=== PATIENT | female | born 1930 | race Caucasian/White ===

== ENCOUNTER 2017-03-31 14:37 | Inpatient (IN) | payer MEDICARE, OTHER ==
[2017-03-31] MEDS ORDERED: Loperamide HCl 2 MG CAP PO PRN (17:34)
[2017-03-31] MEDS ORDERED: PROVENTIL INHALER 6.7 G (200 INHALATIONS) INH PRN (17:34)
[2017-03-31] MEDS ORDERED: Loratadine 10 MG TAB PO PRN (17:34)
[2017-03-31] MEDS ORDERED: Levalbuterol HCl 1.25 MG/0.5 ML NEB NEB PRN (17:34)
[2017-03-31] MEDS ORDERED: Milk Of Magnesia 30 ML UDCUP PO PRN (17:37)
[2017-03-31] MEDS: Acetaminophen 325 MG TAB PO SCH (18:48)
[2017-03-31] MEDS: Amoxicillin/Potassium Clav 500 MG TAB PO SCH (21:17)
[2017-03-31] MEDS: Ferrous Sulfate 325 MG TAB PO SCH (21:18)
[2017-03-31] MEDS: Famotidine 20 MG TAB PO SCH (21:18)
[2017-03-31] MEDS: Dicyclomine 20 MG TAB PO PRN (21:18)
[2017-03-31] MEDS: Diphenoxylate HCl/Atropine Tablet PO PRN (21:18)
[2017-03-31] MEDS: Apixaban 5 MG TAB PO SCH (21:19)
[2017-03-31] MEDS: Lidocaine Patch Removal 1 EACH TOP SCH (21:20)
[2017-03-31] MEDS: Mometasone/Formoterol 60 PUFF AER INH SCH (21:39)
--- NOTE | 2017-03-31 22:21 | HP ---
DATE OF ADMISSION: 03/31/2017 HISTORY OF PRESENT ILLNESS: Ms. Burnett is a very pleasant 87-year-old white female that presented t [facility] with shortness of breath, chronic obstructive pulmonary disease, acute exacerba tion and chronic diastolic congestive heart failure. She was evaluated and found to possibly have pn eumonia also. She was treated with IV antibiotics, aggressive pulmonary supportive measures includin g IV Solu-Medrol, bronchodilator therapy, and IV antibiotics. The patient eventually improved, becky casillas, was transferred to [facility] for physical therapy and occupational therapy. PAST MEDICAL HISTORY: Significant for; 1. T12 vertebral compression fracture, which she had a vertebroplasty done. 2. Atrial fibrillation. 3. Hypertension 4. Cardiac arrhythmia. 5. Non-Hodgkin's lymphoma. 6. Diastolic congestive heart failure. 7. Chronic obstructive pulmonary disease from smoking. 8. GERD. 9. Peptic ulcer disease. 10. Dysphagia. 11. Depression. 12. Macular degeneration. 13. Generalized weakness. PAST SURGICAL HISTORY: 1. The patient has had tonsillectomy and adenoidectomy. 2. The patient had vertebroplasty at T12. SOCIAL HISTORY: Reveals patient stopped smoking in 1995, but she had a [id number] history of smoki ng. The patient drinks no alcohol at this time. She has no drug. 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 PRESENT MEDICATIONS: Reviewed, she is on the followin. Tylenol 650 p.r.n. 2. Albuterol inhaler 2 puffs q.6 h. p.r.n. 3. DuoNebs q.6 h. p.r.n. 4. Augmentin 500 mg twice a day for 2-3 more days. 5. Apixaban 2.5 mg b.i.d. 6. Aspirin 81 mg daily. 7. Carvedilol 6.25 b.i.d. 8. Bentyl 10 mg q.i.d. p.r.n. 9. Lomotil 2 tabs q.i.d. p.r.n. diarrhea. 10. Pepcid 20 mg b.i.d. 11. Feosol 325 mg b.i.d. 12. Fluoxetine 60 mg daily. 13. Lasix 20 mg daily. 14. Xopenex 1.25 q.6 h. p.r.n. 15. Lidocaine patch p.r.n. 16. Claritin 10 mg daily p.r.n. 17. Milk of Magnesia p.r.n. 18. Melatonin 3 mg at bedtime p.r.n. 19. Lidocaine patch to be removed after 12 hours. 20. Dulera 200 mg b.i.d. 21. Potassium chloride 20 mEq b.i.d. with meals. 22. Prednisone 40 mg every morning for 3 days, then decrease to 30 mg every day for 3 days, then 20 mg daily in the morning for 3 days, then 10 mg every morning for 3 days, then off. 23. Valtrex 500 mg daily. ALLERGIES: The patient is noted to be allergic to FLAGYL, SULFA, AND TRAMADOL. FAMILY HISTORY: Reveals patient's father at age 82. He had pneumonia, COPD, macular degenerati on. The patient's mother at age 93. She had decreased vision and in sleep, thought to be possibly a stroke. The patient's paternal grandfather lived to be over 100. Patient has had one bro ther, who recently at age 90 of lung cancer. Has no sisters and she has two children. Family h istory is positive for macular degeneration, COPD. REVIEW OF SYSTEMS: Reveal the patient's appetite is increasing. She complains of no skin problems e xcept for her shingles. She states her vision or hearing are poor. She does get short of breath and does cough occasionally and occasionally wheezes. She does have shortness of breath on exertion. S he has some chest pain when they pumped on her chest. She has no nausea, vomiting, indigestion. She states her appetite is getting better. She occasionally has constipation. She has no nocturia. Sh e has arthralgias, it kind of roves around. She has no significant anxiety-depressive disorder. PHYSICAL EXAMINATION: GENERAL: This is a well-developed, well-nourished, very pleasant white female in no apparent distres s at this time. HEENT: Reveals normocephalic, nontraumatic cranium. Pupils equal, round, and reactive. Extraocular movements intact. Nose and throat are slightly dry. NECK: Supple, without masses, nodes, or bruits. No jugular venous distention is noted. CHEST: Reveals shallow breath sounds. There are also distant. No rales, no rhonchi, no wheezes are heard at this time. No significant cough is noted. HEART: Reveals a regular rate and rhythm, a 2/6 systolic ejection murmur is noted. [place] best at th e mitral area. ABDOMEN: Scaphoid, soft, nontender, without organomegaly. Normal bowel sounds are noted. No reboun d or guarding is noted. : Deferred. EXTREMITIES: Reveal no clubbing, cyanosis, or edema. ASSESSMENT: 1. Generalized weakness. 2. Status post acute hypoxic respiratory failure. 3. Status post acute exacerbation of chronic obstructive pulmonary disease, improved. 4. Aspiration pneumonia, gram positive cocci improved. 5. Acute metabolic encephalopathy, improved. 6. Paroxysmal atrial fibrillation, anticoagulated with Eliquis 2.5 b.i.d. 7. Esophageal stricture, status post dilatation. 8. Hypertension. 9. T12 compression fracture with recent vertebroplasty. 10. Macular degeneration. 11. Dysphagia. 12. Depression. 13. Non-Hodgkin's lymphoma. 14. Diastolic congestive heart failure. 15. Gastroesophageal reflux disease. 16. Peptic ulcer disease. 17. Depression. 18. Generalized weakness. PLAN: 1. Continue present medications. 2. Stress ulcer prophylaxis. 3. Decubitus precautions. 4. Physical therapy and occupational therapy. 5. Speech therapy. 6. Continue present medications.
[2017-04-01] MEDS: Acetaminophen 325 MG TAB PO SCH ×4 (01:59→17:51)
[2017-04-01 05:22] LABS: Band 2 % (5-11); Eosinophils 5 % (0-10); Hemoglobin 15.4 g/dL (12.0-16.0); Lymphocytes 13 % (21-51); MDiff Complete? YES; Mean Corpuscular HGB CONC 30.2 g/dL (32.0-36.0); Mean Corpuscular Hemoglobin 29.2 pg (27.0-31.0); Mean Corpuscular Volume 96.7 fl (81.0-99.0); Mean Platelet Volume 8.3 fL (7.4-10.4); Monocytes 8 % (0-10); Neutrophil 72 % (42-75); PLT Morphology Comment Appears Adequate; Platelet Count 349 thou/uL (130-400); RBC Distribution Width 16.8 % (11.5-14.5); RBC Morphology Normal; Red Blood Cell (RBC) Count 5.27 mill/uL (4.20-5.40); White Blood Cell (WBC) Count 7.2 thou/uL (4.8-10.8)
[2017-04-01 05:36] LABS: ALT (SGPT) 14 U/L (8-55); AST (SGOT) 14 U/L (5-34); Albumin 3.5 g/dL (3.4-4.8); Alkaline Phosphatase 91 U/L (40-150); Anion Gap 15 mmol/L (10-20); BUN (Urea Nitrogen) 23 mg/dL (9.8-20.1); Bilirubin, Total 0.6 mg/dL (0.2-1.2); Calc. Creatinine Clearance 36 mL/min (70-130); Calcium 9.4 mg/dL (7.8-10.44); Carbon Dioxide 33 mmol/L (23-31); Chloride 99 mmol/L (98-107); Estimated GFR-MDRD 69; Globulin 2.4 g/dL (2.4-3.5); Glucose 99 mg/dL (83-110); Potassium 4.6 mmol/L (3.5-5.1); Protein, Total 5.9 g/dL (6.0-8.3); Sodium 142 mmol/L (136-145)
[2017-04-01] MEDS: Mometasone/Formoterol 60 PUFF AER INH SCH ×2 (05:59→18:34)
[2017-04-01] MEDS: Famotidine 20 MG TAB PO SCH ×2 (08:41→21:12)
[2017-04-01] MEDS: valACYclovir 500 MG TAB PO SCH (08:41)
[2017-04-01] MEDS: Potassium Chloride 20 MEQ TAB PO SCH ×2 (08:41→17:47)
[2017-04-01] MEDS: FLUoxetine HCl 20 MG CAP PO SCH (08:41)
[2017-04-01] MEDS: Ferrous Sulfate 325 MG TAB PO SCH ×2 (08:42→21:12)
[2017-04-01] MEDS: predniSONE 20 MG TAB PO SCH (08:42)
[2017-04-01] MEDS: Aspirin 81 mg Enteric Coated Tablet PO SCH (08:43)
[2017-04-01] MEDS: Furosemide 20 MG TAB PO SCH (08:43)
[2017-04-01] MEDS: Carvedilol 6.25 MG TAB PO SCH ×2 (08:43→17:46)
[2017-04-01] MEDS: Apixaban 5 MG TAB PO SCH ×2 (08:43→21:13)
[2017-04-01] MEDS: Amoxicillin/Potassium Clav 500 MG TAB PO SCH ×2 (08:43→21:13)
[2017-04-01] MEDS: Lidocaine 5% Patch TD SCH (08:44)
[2017-04-01] MEDS: Diphenoxylate HCl/Atropine Tablet PO PRN (13:55)
--- NOTE | 2017-04-01 18:55 | PRG ---
DATE OF SERVICE: 04/01/2017 DATE OF ADMISSION: 03/31/2017 HISTORY OF PRESENT ILLNESS: Ms. Burnett is a very pleasant 87-year-old white female that presented t o the emergency room at [facility] with shortness of breath. She was found to have COPD acu te exacerbation and chronic diastolic congestive heart failure. She was evaluated and also thought t o have pneumonia. She eventually was treated with IV antibiotics, IV Solu-Medrol, bronchodilator the rapy. She was stabilized and transferred to [facility] for physical therapy, occupat ional therapy because she was so weak. SUBJECTIVE: The patient states she had a good night. She slept well and had a wonderful breakfast. She is waiting for therapy this morning. Unfortunately, she refused therapy last night because when she got in, she was just absolutely exhausted. PHYSICAL EXAMINATION: VITAL SIGNS: This morning revealed blood pressure 116/66, pulse 96-98, respirations 20, O2 sat 96-98 % on 2-3 liters. T-max is 97.4. GENERAL: This is a well-developed, well-nourished, white female in no apparent distress at this time . HEENT: Reveals normocephalic, nontraumatic cranium. Pupils are equally round and reactive. Extraoc ular movements intact. Nose and throat are slightly dry. NECK: Supple, without masses, nodes or bruits. No jugular venous distention is noted. LUNGS: Chest is clear to auscultation, but breath sounds are noted be distant and shallow. No rales , no rhonchi, no wheezes and no cough is noted. HEART: Reveals a regular rate and rhythm. A 2/6 systolic ejection murmur is noted, heard best at th e mitral valve area. ABDOMEN: Scaphoid, soft, nontender, without organomegaly, normal bowel sounds are noted in all 4 avel drants. No rebound or guarding is noted. GENITOURINARY: Deferred. EXTREMITIES: Reveal no clubbing, cyanosis or edema. ASSESSMENT: 1. Generalized weakness. 2. Status post acute hypoxic respiratory failure. 3. Status post acute exacerbation of chronic obstructive pulmonary disease. 4. Status post acute exacerbation of congestive heart failure. 5. Aspiration pneumonia with gram positive cocci, improved. 6. Acute metabolic encephalopathy, improved. 7. Paroxysmal atrial fibrillation, presently on anticoagulation with Eliquis 2.5 b.i.d. 8. Esophageal stricture, status post dilatation. 9. Hypertension. 10. T12 compression fracture with recent vertebroplasty. 11. Macular degeneration. 12. Dysphagia. 13. Depression. 14. Non-Hodgkin's lymphoma. 15. Diastolic congestive heart failure. 16. Gastroesophageal reflux disease. 17. Peptic ulcer disease. 18. Generalized weakness. PLAN: 1. Continue present medications. 2. Continue stress ulcer prophylaxis. 3. Decubitus precautions. 4. Physical therapy and occupational therapy. 5. Speech therapy.
[2017-04-01] MEDS: Nystatin 500,000 UNITS/5 ML UDCUP PO SCH (21:12)
[2017-04-01] MEDS: Lidocaine Patch Removal 1 EACH TOP SCH (21:13)
[2017-04-01] MEDS: Melatonin 3 MG TAB PO PRN (21:13)
[2017-04-02] MEDS: Acetaminophen 325 MG TAB PO SCH ×4 (02:46→17:16)
[2017-04-02] MEDS: Mometasone/Formoterol 60 PUFF AER INH SCH ×2 (05:31→21:30)
[2017-04-02] MEDS: Nystatin 500,000 UNITS/5 ML UDCUP PO SCH ×4 (08:48→21:30)
[2017-04-02] MEDS: Apixaban 5 MG TAB PO SCH ×2 (08:52→21:31)
[2017-04-02] MEDS: valACYclovir 500 MG TAB PO SCH (08:52)
[2017-04-02] MEDS: predniSONE 20 MG TAB PO SCH (08:53)
[2017-04-02] MEDS: Famotidine 20 MG TAB PO SCH ×2 (08:53→21:31)
[2017-04-02] MEDS: FLUoxetine HCl 20 MG CAP PO SCH (08:53)
[2017-04-02] MEDS: Furosemide 20 MG TAB PO SCH (08:53)
[2017-04-02] MEDS: Carvedilol 6.25 MG TAB PO SCH ×2 (08:53→17:18)
[2017-04-02] MEDS: Aspirin 81 mg Enteric Coated Tablet PO SCH (08:53)
[2017-04-02] MEDS: Ferrous Sulfate 325 MG TAB PO SCH ×2 (08:54→21:31)
[2017-04-02] MEDS: Amoxicillin/Potassium Clav 500 MG TAB PO SCH ×2 (08:56→21:31)
[2017-04-02] MEDS: Potassium Chloride 20 MEQ TAB PO SCH ×2 (08:56→17:18)
[2017-04-02] MEDS: Lidocaine 5% Patch TD SCH (08:57)
--- NOTE | 2017-04-02 17:09 | PRG ---
DATE OF SERVICE: 04/02/2017 DATE OF ADMISSION: 03/31/2017 Ms. Burnett is a very pleasant 87-year-old white female who initially presented to the emergency room at [facility] with shortness of breath. She was found to have COPD acute exacerbation and chronic diastolic congestive heart failure. She was evaluated and thought to have pneumonia. She ev entually was treated with IV antibiotics, IV Solu-Medrol, and bronchodilator therapy. She eventually stabilized and transferred to [facility] for physical therapy and occupational thera py. A couple weeks before that the patient had been at [facility] for physical therapy and occupational therapy secondary to falling with a T12 compression fracture. She has had some significant problems with congestive heart failure. She actually did fairly well at therapy, but had to be shipped to [place] because of her pneumonia, COPD, acute exacerbation of CHF. SUBJECTIVE: The patient states she has not had a very good morning this morning. She had Speech The rapy come and Physical Therapy come and her lunch all come about the same time and seemed to be somew hat disjointed. She has also had significant problems with diarrhea alternating with constipation. She states she has had 4 diarrhea stools yesterday and 3 last night, but then before that she was con stipated. She did take a couple of Lomotil yesterday and that seemed to settle things a little bit. She seems a little bit out of sort this afternoon and she is most likely just somewhat tired. Nonet heless, she did say that she would try to get some physical therapy this afternoon and looking back n ow, it looked like the physical therapist did come by little bit after 3:00 and she walked 120 feet. She is still very weak and balance is poor and she can still use more therapy. PHYSICAL EXAMINATION: VITAL SIGNS: Reveal blood pressure this morning 165/91, at 1500 hours, 132/77. Pulse is 72, respira tions 18, O2 sat 100% on 2-1/2 to 3 liters. T-max is 95.7. GENERAL: This is a well-developed, well-nourished, very pleasant white female who is somewhat little upset this afternoon from all disjointedness of this morning. HEENT: Reveals normocephalic, nontraumatic cranium. Pupils are equally round and reactive. Extraoc ular movements are intact. Nose and throat are slightly dry. NECK: Supple, without mass, nodes or bruits. CHEST: Clear to auscultation. No rales. No rhonchi. No wheezes are heard. HEART: Reveals a regular rate and rhythm with a 2/6 systolic ejection murmur is noted, heard best at the mitral valve area. ABDOMEN: Soft, scaphoid, nontender, without organomegaly. Normal bowel sounds are noted in all 4 qu adrants. No rebound or guarding is noted. GENITOURINARY: Deferred. EXTREMITIES: Reveal no clubbing, cyanosis or edema. IMPRESSION: 1. Generalized weakness. 2. Status post acute hypoxic respiratory failure. 3. Status post acute exacerbation of chronic obstructive pulmonary disease. 4. Status post acute exacerbation of congestive heart failure. 5. Aspiration pneumonia with gram positive cocci, improved. 6. Acute metabolic encephalopathy, improved. 7. Paroxysmal atrial fibrillation, presently on anticoagulant with Eliquis 2.5 b.i.d. 8. Esophageal stricture, status post dilatation. 9. Hypertension. 10. T12 compression fracture with recent vertebroplasty. 11. Macular degeneration. 12. Dysphagia, much improved. 13. Depression. 14. Non-Hodgkin's lymphoma. 15. Diastolic congestive heart failure. 16. Gastroesophageal reflux disease. 17. Peptic ulcer disease. 18. Generalized weakness. PLAN: 1. Continue present medications. 2. Continue to follow the patient closely for signs and symptoms of congestive heart failure. 3. Stress ulcer prophylaxis. 4. Decubitus precautions. 5. Deep venous thrombosis prophylaxis. 6. Monitor the patient's heart rate. 7. Monitor the patient's respiratory status closely. 8. Monitor the patient's blood pressure closely. 9. Continue physical therapy and occupational therapy. 10. Continue speech therapy.
[2017-04-02] MEDS: Dicyclomine 20 MG TAB PO PRN (17:30)
[2017-04-02] MEDS: Melatonin 3 MG TAB PO PRN (21:31)
[2017-04-02] MEDS: Lidocaine Patch Removal 1 EACH TOP SCH (21:32)
[2017-04-03] MEDS: Acetaminophen 325 MG TAB PO SCH ×4 (00:29→18:24)
[2017-04-03 05:45] LABS: Hemoglobin 15.5 g/dL (12.0-16.0); Platelet Count 369 thou/uL (130-400)
[2017-04-03] MEDS: Mometasone/Formoterol 60 PUFF AER INH SCH ×2 (06:28→18:28)
[2017-04-03] MEDS: Amoxicillin/Potassium Clav 500 MG TAB PO SCH ×2 (09:28→21:23)
[2017-04-03] MEDS: valACYclovir 500 MG TAB PO SCH (09:29)
[2017-04-03] MEDS: Ferrous Sulfate 325 MG TAB PO SCH ×2 (09:29→21:23)
[2017-04-03] MEDS: FLUoxetine HCl 20 MG CAP PO SCH (09:29)
[2017-04-03] MEDS: predniSONE 20 MG TAB PO SCH (09:29)
[2017-04-03] MEDS: Carvedilol 6.25 MG TAB PO SCH ×2 (09:30→18:24)
[2017-04-03] MEDS: Aspirin 81 mg Enteric Coated Tablet PO SCH (09:30)
[2017-04-03] MEDS: Apixaban 5 MG TAB PO SCH ×2 (09:30→21:23)
[2017-04-03] MEDS: Famotidine 20 MG TAB PO SCH ×2 (09:30→21:23)
[2017-04-03] MEDS: Furosemide 20 MG TAB PO SCH (09:30)
[2017-04-03] MEDS: Nystatin 500,000 UNITS/5 ML UDCUP PO SCH ×4 (09:33→21:23)
[2017-04-03] MEDS: Potassium Chloride 20 MEQ TAB PO SCH ×2 (09:33→18:24)
[2017-04-03] MEDS: Lidocaine 5% Patch TD SCH (09:36)
--- NOTE | 2017-04-03 20:42 | PRG ---
DATE OF SERVICE: 04/03/2017 SUBJECTIVE: The patient feels well, cooperating with therapy, walking in the [place], having no shortne ss of breath, back pain or chest pain, but does have occasional anxiety attacks which she states that she can relieve with just self meditation. OBJECTIVE: Shows her blood pressure, however, is occasionally elevated up to 187/94 although oxygen saturation is 99% on 2-1/2 liters, afebrile, and pulse remained stable at 80. LABORATORY DATA: Hemoglobin stable at 15.5, platelet count 369, creatinine 0.79. ASSESSMENT: 1. Improving chronic obstructive pulmonary disease and steroid taper. 2. Slowly improving decompensated congestive heart failure on furosemide 20 daily, and carvedilol 6. 25 twice daily. 3. Chronic atrial fibrillation with rate control with carvedilol 6.25 twice daily and anticoagulatio n with apixaban 2.5 twice daily. 4. Compression fracture of the lumbosacral spine, minimal pain status post vertebroplasty. PLAN: 1. Continue nebulizers as needed with albuterol. Continue Augmentin 500 mg twice daily for 2-3 more days for previous bronchitis. 2. Continue rate control and anticoagulation with carvedilol, on apixaban. 3. Continue diuresis with Lasix 20 daily, and potassium. 4. Continue PT at a gentle rate at patient's pace.
[2017-04-03] MEDS: Diphenoxylate HCl/Atropine Tablet PO PRN (21:23)
[2017-04-03] MEDS: Melatonin 3 MG TAB PO PRN (21:23)
[2017-04-03] MEDS: Lidocaine Patch Removal 1 EACH TOP SCH (21:24)
[2017-04-04] MEDS: Acetaminophen 325 MG TAB PO SCH ×4 (00:03→17:35)
[2017-04-04] MEDS: Mometasone/Formoterol 60 PUFF AER INH SCH ×2 (06:00→18:23)
[2017-04-04] MEDS ORDERED: Carvedilol 6.25 MG TAB PO SCH (07:11)
--- NOTE | 2017-04-04 09:25 | PRG ---
DATE OF SERVICE: 04/04/2017 SUBJECTIVE: The patient feels well, rested well through the night with no complaints of blood pressu re elevation or anxiety. Nurses state she has had a couple episodes of what they thought was anxiety , but patient feels it was just her blood pressure being elevated and she did have elevated blood pre ssure at times. She is denying any shortness of breath with walking and is having increasing strengt h. OBJECTIVE: VITAL SIGNS: Temperature is 98.7, pulse 72, respirations 19, O2 sat is 99% on 2 liters, blood pressu re 164/89 this morning and was 187/94 last night. LUNGS: Clear. CARDIAC EXAMINATION: Shows an irregularly irregular rhythm. ABDOMEN: Soft and nontender. SKIN AND EXTREMITIES: Show no edema, clubbing, cyanosis. ASSESSMENT: 1. Improving chronic obstructive pulmonary disease with recent exacerbation, on steroid taper. 2. Persistent uncontrolled hypertension, on carvedilol 6.25 twice daily and we will increase to 12.5 twice daily. 3. Chronic atrial fibrillation with rate control and anticoagulation with carvedilol and apixaban. 4. Minimal pain, status post compression fracture of lumbosacral spine, status post vertebroplasty. 5. Slowly improving decompensated congestive heart failure, on furosemide 20 daily in addition to ca rvedilol, and we will continue. PLAN: 1. Finish course of Augmentin for COPD exacerbation. Continue steroid taper. 2. Increase carvedilol 12.5 twice daily and continue Apixaban 2.5 twice daily. 3. Continue Lasix 20 daily with potassium supplementation. 4. Continue physical therapy and occupational therapy.
[2017-04-04] MEDS: Ferrous Sulfate 325 MG TAB PO SCH ×2 (09:30→22:15)
[2017-04-04] MEDS: Apixaban 5 MG TAB PO SCH ×2 (09:30→22:16)
[2017-04-04] MEDS: Aspirin 81 mg Enteric Coated Tablet PO SCH (09:31)
[2017-04-04] MEDS: Amoxicillin/Potassium Clav 500 MG TAB PO SCH ×2 (09:31→22:16)
[2017-04-04] MEDS: valACYclovir 500 MG TAB PO SCH (09:31)
[2017-04-04] MEDS: Potassium Chloride 20 MEQ TAB PO SCH ×2 (09:31→17:35)
[2017-04-04] MEDS: FLUoxetine HCl 20 MG CAP PO SCH (09:31)
[2017-04-04] MEDS: predniSONE 10 MG TAB PO SCH (09:32)
[2017-04-04] MEDS: Furosemide 20 MG TAB PO SCH (09:32)
[2017-04-04] MEDS: Carvedilol 6.25 MG TAB PO SCH ×2 (09:32→17:34)
[2017-04-04] MEDS: Famotidine 20 MG TAB PO SCH ×2 (09:32→22:16)
[2017-04-04] MEDS: Nystatin 500,000 UNITS/5 ML UDCUP PO SCH ×4 (09:33→22:17)
[2017-04-04] MEDS: Lidocaine 5% Patch TD SCH (09:33)
[2017-04-04] MEDS: Diphenoxylate HCl/Atropine Tablet PO PRN ×2 (17:35→22:15)
[2017-04-04] MEDS: Melatonin 3 MG TAB PO PRN (22:15)
[2017-04-04] MEDS: Lidocaine Patch Removal 1 EACH TOP SCH (22:16)
[2017-04-04 22:41] LABS: Bilirubin Negative (Negative); Blood, Urine Negative (Negative); Clarity Clear (Clear); Glucose, Urine (Dipstick) Negative (Negative); Leukocyte Negative (Negative); Nitrite Negative (Negative); Protein, Urine (Dipstick) Negative (Neg-Trace); Urobilinogen 0.2 mg/dL (0.2-1.0); pH, Urine 5.5 (5.0-9.0)
[2017-04-04 22:46] LABS: Bacteria/HPF None Seen HPF (None Seen); RBC/HPF None Seen HPF (0-3); Squamous Epithelial 0-3 HPF (0-3); WBC/HPF None Seen HPF (0-3)
[2017-04-05] MEDS: Acetaminophen 325 MG TAB PO SCH ×4 (00:30→17:57)
[2017-04-05 05:33] LABS: Hemoglobin 15.7 g/dL (12.0-16.0); Platelet Count 411 thou/uL (130-400)
[2017-04-05] MEDS: Mometasone/Formoterol 60 PUFF AER INH SCH ×2 (05:56→17:57)
[2017-04-05] MEDS: predniSONE 10 MG TAB PO SCH (08:04)
[2017-04-05] MEDS: Potassium Chloride 20 MEQ TAB PO SCH ×2 (08:07→17:56)
[2017-04-05] MEDS: Carvedilol 6.25 MG TAB PO SCH ×2 (09:04→17:55)
[2017-04-05] MEDS: Amoxicillin/Potassium Clav 500 MG TAB PO SCH ×2 (09:07→21:10)
[2017-04-05] MEDS: Lidocaine 5% Patch TD SCH (10:03)
[2017-04-05] MEDS: FLUoxetine HCl 20 MG CAP PO SCH (10:04)
[2017-04-05] MEDS: Apixaban 5 MG TAB PO SCH ×2 (10:05→21:10)
[2017-04-05] MEDS: Famotidine 20 MG TAB PO SCH ×2 (10:05→21:10)
[2017-04-05] MEDS: Nystatin 500,000 UNITS/5 ML UDCUP PO SCH ×4 (10:06→21:10)
[2017-04-05] MEDS: Furosemide 20 MG TAB PO SCH (10:06)
[2017-04-05] MEDS: Aspirin 81 mg Enteric Coated Tablet PO SCH (10:06)
[2017-04-05] MEDS: Ferrous Sulfate 325 MG TAB PO SCH ×2 (10:06→21:10)
[2017-04-05] MEDS: valACYclovir 500 MG TAB PO SCH (10:07)
--- NOTE | 2017-04-05 13:46 | PRG ---
DATE OF SERVICE: 04/05/2017 DATE OF ADMISSION: 03/31/2017 SUBJECTIVE: Ms. Burnett states she had a pretty good weekend. She walked a little bit, has not had any significant shortness of breath or any chest pain. Dr. Grissom saw her over the weekend and not ed that her blood pressure was slightly elevated and bumped her carvedilol to 12.5 mg twice a day. S he has tolerated that fairly well and we will continue to watch her closely. This morning, the patient is a bit confused thinking that she just finished lunch when she just finis hed breakfast this morning. After a while, she did loosen up and did go for a walk with physical the rapy and seemed to be doing very well. She states she would like to get her therapies in the afterno on. PHYSICAL EXAMINATION: VITAL SIGNS: Reveal blood pressure this morning 148/91, pulse 79, respirations 19, O2 sat 99% on 1/2 -2 liters. T-max 95.2. GENERAL: This is a well-developed, well-nourished, very pleasant white female, in no apparent distre ss at this time. HEENT: Reveals normocephalic, nontraumatic cranium. The pupils are equally round and reactive. Ext raocular movements are intact. The nose and throat are slightly dry. NECK: Supple, without masses, nodes, or bruits. CHEST: Clear to auscultation. HEART: Reveals irregularly irregular rate and rhythm. ABDOMEN: Soft, nontender, without organomegaly, normal bowel sounds are noted. No rebound or guardi ng is noted. EXAM: Deferred. EXTREMITIES: Reveal no clubbing, cyanosis, or edema, just generalized weakness. LABORATORY DATA: Laboratory this morning revealed hemoglobin was 15.7, hematocrit 50.6, platelet cou nt of 411. Her creatinine was 0.85 and GFR was 63. ASSESSMENT: 1. Status post acute exacerbation of chronic obstructive pulmonary disease, presently on a prednison e taper. 2. Congestive heart failure, presently on Lasix 20 daily. 3. Acute hypoxic respiratory failure. 4. Aspiration pneumonia, presently on Augmentin. 5. Acute metabolic encephalopathy, much improved. 6. Paroxysmal atrial fibrillation, presently on Eliquis 2.5 mg twice a day. 7. Esophageal stricture, status post dilatation. 8. Hypertension. 9. T12 compression fracture with recent vertebroplasty. 11. Dysphagia, much improved. 12. Non-Hodgkin's lymphoma. 13. Diastolic congestive heart failure. 14. Gastroesophageal reflux disease. 15. Peptic ulcer disease. 16. Macular degeneration. 17. Dysphagia. 18. Generalized weakness. PLAN: 1. Continue the patient's prednisone taper. 2. Continue Augmentin for another day or two. 3. Continue supportive respiratory care with handheld nebulizers. 4. Continue Eliquis 2.5. 5. Stress ulcer prophylaxis. 6. Decubitus precautions. 7. Deep venous thrombosis prophylaxis. 8. Monitor patient's respiratory status and cardiac status closely. 9. Monitor the patient's blood pressure closely. 10. Continue physical therapy and occupational therapy. 11. Continue speech therapy.
[2017-04-05] MEDS: Melatonin 3 MG TAB PO PRN (21:10)
[2017-04-05] MEDS: Lidocaine Patch Removal 1 EACH TOP SCH (21:12)
[2017-04-05] MEDS: Diphenoxylate HCl/Atropine Tablet PO PRN (21:17)
[2017-04-06] MEDS: Acetaminophen 325 MG TAB PO SCH ×4 (03:36→18:23)
[2017-04-06] MEDS: Mometasone/Formoterol 60 PUFF AER INH SCH ×2 (06:02→18:24)
[2017-04-06] MEDS: Nystatin 500,000 UNITS/5 ML UDCUP PO SCH ×4 (08:37→20:58)
[2017-04-06] MEDS: Lidocaine 5% Patch TD SCH (08:38)
[2017-04-06] MEDS: FLUoxetine HCl 20 MG CAP PO SCH (08:39)
[2017-04-06] MEDS: Furosemide 20 MG TAB PO SCH (08:39)
[2017-04-06] MEDS: Famotidine 20 MG TAB PO SCH ×2 (08:39→20:57)
[2017-04-06] MEDS: Amoxicillin/Potassium Clav 500 MG TAB PO SCH (08:40)
[2017-04-06] MEDS: predniSONE 10 MG TAB PO SCH (08:40)
[2017-04-06] MEDS: Ferrous Sulfate 325 MG TAB PO SCH ×2 (08:40→20:57)
[2017-04-06] MEDS: Aspirin 81 mg Enteric Coated Tablet PO SCH (08:40)
[2017-04-06] MEDS: Apixaban 5 MG TAB PO SCH ×2 (08:40→20:57)
[2017-04-06] MEDS: Potassium Chloride 20 MEQ TAB PO SCH ×2 (08:41→16:43)
[2017-04-06] MEDS: Carvedilol 6.25 MG TAB PO SCH ×2 (08:45→16:41)
[2017-04-06] MEDS: valACYclovir 500 MG TAB PO SCH (08:46)
[2017-04-06] MEDS: Naproxen 500 MG TAB PO SCH (16:41)
--- NOTE | 2017-04-06 20:40 | PRG ---
DATE OF SERVICE: 04/06/2017 SUBJECTIVE: Ms. Burnett is a very pleasant 87-year-old white female who is in a very good mood this morning. She denies any problems. Denies any chest pain or shortness of breath. She states she fee ls good. OBJECTIVE: VITAL SIGNS: Today reveal blood pressure this morning 152/88, pulse 72, respirations 17, O2 sat 98% on 1 liter nasal cannula, T-max 96.5. GENERAL: This is a well-developed, well-nourished, very thin, pleasant white female, in no apparent distress at this time. HEENT: Reveals normocephalic, nontraumatic cranium. Pupils are equally round and reactive. Extraoc ular movements intact. Nose and throat are slightly dry, but clear. NECK: Supple without masses, nodes or bruits. LUNGS: Chest is clear to auscultation. No rales, no rhonchi, no wheezes are heard. CARDIOVASCULAR: Reveals irregularly irregular rate and rhythm. ABDOMEN: Soft and nontender without organomegaly, normal bowel sounds are noted. No rebound or guar ding is noted. GENITOURINARY: Deferred. EXTREMITIES: Reveal no clubbing, cyanosis or edema. IMPRESSION: 1. Status post acute exacerbation of chronic obstructive pulmonary disease. 2. Systolic and diastolic congestive heart failure, presently on Lasix 20 a day. 3. History of acute hypoxemic respiratory failure. 4. Aspiration pneumonia, presently on Augmentin. 5. Acute metabolic encephalopathy, improved. 6. Paroxysmal atrial fibrillation, on Eliquis 2.5 twice daily. 7. Esophageal stricture, status post dilatation. 8. Hypertension. 9. T12 compression fracture with recent vertebroplasty. 10. Dysphagia, much improved. 11. Non-Hodgkin's lymphoma. 12. Diastolic congestive heart failure. 13. Gastroesophageal reflux disease. 14. Peptic ulcer disease 15. Macular degeneration. 16. Dysphagia. 17. Generalized weakness. PLAN: 1. Continue Augmentin at this time. We will look at discontinued date. 2. Continue supportive respiratory care. 3. Continue Eliquis. 4. Stress ulcer prophylaxis. 5. Decubitus precautions. 6. Deep venous thrombosis prophylaxis. 7. Monitor the patient's respiratory status. 8. Monitor the patient's cardiac status and watch for signs and symptoms of congestive heart failure . 9. Monitor the patient's blood pressure closely. 10. Continue PT and OT. 11. Continue speech therapy.
[2017-04-06] MEDS: Diphenoxylate HCl/Atropine Tablet PO PRN (20:56)
[2017-04-06] MEDS: Melatonin 3 MG TAB PO PRN (20:57)
[2017-04-06] MEDS: Lidocaine Patch Removal 1 EACH TOP SCH (20:58)
[2017-04-07] MEDS: Acetaminophen 325 MG TAB PO SCH ×4 (01:01→17:28)
[2017-04-07] MEDS: Mometasone/Formoterol 60 PUFF AER INH SCH ×2 (05:19→18:14)
[2017-04-07 05:48] LABS: Band 2 % (5-11); Eosinophils 2 % (0-10); Hemoglobin 16.2 g/dL (12.0-16.0); Lymphocytes 6 % (21-51); MDiff Complete? YES; Mean Corpuscular HGB CONC 30.5 g/dL (32.0-36.0); Mean Corpuscular Hemoglobin 29.7 pg (27.0-31.0); Mean Corpuscular Volume 97.5 fl (81.0-99.0); Mean Platelet Volume 8.5 fL (7.4-10.4); Monocytes 4 % (0-10); Neutrophil 86 % (42-75); PLT Morphology Comment Appears Adequate; Platelet Count 395 thou/uL (130-400); RBC Distribution Width 17.4 % (11.5-14.5); RBC Morphology Normal; Red Blood Cell (RBC) Count 5.45 mill/uL (4.20-5.40); White Blood Cell (WBC) Count 15.8 thou/uL (4.8-10.8)
[2017-04-07 06:00] LABS: ALT (SGPT) 19 U/L (8-55); AST (SGOT) 17 U/L (5-34); Albumin 3.8 g/dL (3.4-4.8); Alkaline Phosphatase 101 U/L (40-150); Anion Gap 14 mmol/L (10-20); BUN (Urea Nitrogen) 38 mg/dL (9.8-20.1); Bilirubin, Total 0.7 mg/dL (0.2-1.2); Calc. Creatinine Clearance 27 mL/min (70-130); Calcium 9.9 mg/dL (7.8-10.44); Carbon Dioxide 35 mmol/L (23-31); Chloride 98 mmol/L (98-107); Estimated GFR-MDRD 48; Globulin 2.3 g/dL (2.4-3.5); Glucose 96 mg/dL (83-110); Potassium 4.7 mmol/L (3.5-5.1); Protein, Total 6.1 g/dL (6.0-8.3); Sodium 142 mmol/L (136-145)
[2017-04-07] MEDS: Dicyclomine 20 MG TAB PO PRN ×2 (08:21→13:49)
[2017-04-07] MEDS: Nystatin 500,000 UNITS/5 ML UDCUP PO SCH ×5 (09:00→21:11)
[2017-04-07] MEDS: Ferrous Sulfate 325 MG TAB PO SCH (09:28)
[2017-04-07] MEDS: Naproxen 500 MG TAB PO SCH ×2 (09:28→17:28)
[2017-04-07] MEDS: Lidocaine 5% Patch TD SCH (09:28)
[2017-04-07] MEDS: Carvedilol 6.25 MG TAB PO SCH ×2 (09:29→17:27)
[2017-04-07] MEDS: predniSONE 20 MG TAB PO SCH (09:30)
[2017-04-07] MEDS: valACYclovir 500 MG TAB PO SCH (09:30)
[2017-04-07] MEDS: FLUoxetine HCl 20 MG CAP PO SCH (09:30)
[2017-04-07] MEDS: Aspirin 81 mg Enteric Coated Tablet PO SCH (09:31)
[2017-04-07] MEDS: Famotidine 20 MG TAB PO SCH ×2 (09:31→21:10)
[2017-04-07] MEDS: Apixaban 5 MG TAB PO SCH ×2 (09:34→21:09)
[2017-04-07] MEDS: Furosemide 20 MG TAB PO SCH (09:45)
[2017-04-07] MEDS: Potassium Chloride 20 MEQ TAB PO SCH (09:45)
[2017-04-07] MEDS: Lidocaine Patch Removal 1 EACH TOP SCH (21:11)
--- NOTE | 2017-04-07 22:22 | PRG ---
DATE OF SERVICE: 04/07/2017 HISTORY OF PRESENT ILLNESS: Ms. Burnett is a very pleasant 87-year-old white female that was transfe rred from [facility] with chronic obstructive pulmonary disease acute exacerbation and chron ic diastolic congestive heart failure. She was also found to have pneumonia. She was treated with I V antibiotics and aggressive pulmonary and cardiology support. She eventually was stabilized and tra nsferred to [facility] for PT and OT. The patient is in a good mood this morning. I did talk with her daughter about continuing therapy. We also did run lab work on her today. LABORATORY DATA: This morning reveals a white count slightly elevated at 15.8 with hemoglobin of 16. 2, hematocrit 53.2 and a platelet count of 395,000. Her sodium is 142, potassium 4.7, chloride 98, carbon dioxide 35 with a BUN of 38 and creatinine 1.07 . Her BNP was 190, but her BNP typically runs 1200 down to 896. Last time it was done about 10 days ago was 896. I did discuss with the daughter her white count and she states that she has 2 types of leukemia and i s followed at [facility], it is not unusual for her white count to be elevated. Because the patient's BUN and creatinine are slightly elevated, we will stop her Lasix and her potass ium because she has a history of anemia. We will also keep her off the naproxen after about 3 days a nd we will stop her iron pills since she is doing well. The patient has had some nausea and so most likely we will stop her Naprosyn also. The patient was very excited about stopping these medications and she promised to do better. We did discuss that she will get physical therapy in the morning and occupational therapy in the afternoon s he was pretty happy with that. OBJECTIVE: VITAL SIGNS: Today reveal blood pressure this morning was 167/81, pulse 73-87, respirations 20, O2 s at 99% on half liter nasal cannula. T-max 98.0. GENERAL: This is a well-developed, well-nourished but very thin white female in no apparent distress at this time. HEENT: Reveals normocephalic, nontraumatic cranium. Pupils are equally round and reactive. Extraoc ular movements are intact. Nose and throat are slightly dry. NECK: Supple, without masses, nodes or bruits. LUNGS: Chest is clear to auscultation, but the breath sounds are shallow and distant. No rales, no rhonchi, and no wheezes are heard. The patient does have an irregularly irregular heart rate. ABDOMEN: Soft, scaphoid, nontender, without organomegaly, normal bowel sounds are noted. No rebound or guarding is noted. : Deferred. EXTREMITIES: Reveal no clubbing, cyanosis or edema. IMPRESSION: 1. Recent history of acute exacerbation of chronic obstructive pulmonary disease. 2. Recent history of systolic and diastolic congestive heart failure, presently Lasix is on hold. 3. History of acute hypoxemic respiratory failure. 4. History of aspiration pneumonia. Augmentin has been stopped. 5. Acute metabolic encephalopathy, improved. 6. Paroxysmal atrial fibrillation, on Eliquis 2.5 daily. 7. Esophageal stricture, status post dilatation doing very well. The patient is eating well. 8. Hypertension, stable, slightly elevated at times. 9. T12 compression fracture with recent vertebroplasty that is the reason for her PT and OT. 10. Dysphagia, much improved. 11. Non-Hodgkin's lymphoma. 12. Diastolic congestive heart failure. 13. Gastroesophageal reflux. 14. Peptic ulcer disease. 15. Macular degeneration. 16. Generalized weakness. PLAN: 1. The patient's Augmentin has been stopped. 2. The patient's Lasix has been stopped. 3. The patient's potassium has been stopped. 4. Patient's iron supplement has been stopped. 5. We will look into stopping her naproxen. 6. The patient's labs were outstanding. 7. Continue physical therapy and occupational therapy. 8. Continue speech therapy. 9. We will be looking forward to getting the report from M.D. Mick about her 2 types of leukemia . I appreciate discussion with Dr. Wolff.
[2017-04-08] MEDS: Acetaminophen 325 MG TAB PO SCH ×4 (00:26→18:02)
[2017-04-08] MEDS: Mometasone/Formoterol 60 PUFF AER INH SCH ×2 (06:06→18:02)
[2017-04-08] MEDS: Dicyclomine 20 MG TAB PO PRN (07:45)
[2017-04-08] MEDS: Nystatin 500,000 UNITS/5 ML UDCUP PO SCH ×4 (08:28→21:17)
[2017-04-08] MEDS: Lidocaine 5% Patch TD SCH (08:28)
[2017-04-08] MEDS: Carvedilol 6.25 MG TAB PO SCH ×2 (08:29→18:01)
[2017-04-08] MEDS: Naproxen 500 MG TAB PO SCH ×2 (08:29→18:01)
[2017-04-08] MEDS: Famotidine 20 MG TAB PO SCH ×2 (08:29→21:16)
[2017-04-08] MEDS: Aspirin 81 mg Enteric Coated Tablet PO SCH (08:29)
[2017-04-08] MEDS: valACYclovir 500 MG TAB PO SCH (08:30)
[2017-04-08] MEDS: predniSONE 20 MG TAB PO SCH (08:30)
[2017-04-08] MEDS: FLUoxetine HCl 20 MG CAP PO SCH (08:30)
[2017-04-08] MEDS: Apixaban 5 MG TAB PO SCH ×2 (08:31→21:17)
--- NOTE | 2017-04-08 14:12 | PRG ---
DATE OF SERVICE: 04/08/2017 HISTORY OF PRESENT ILLNESS: Ms. Burnett is a very pleasant 87-year-old white female transferred from [facility] for COPD, acute exacerbation of her diastolic congestive heart failure, pneumoni a, generalized weakness. She was treated with IV antibiotics and aggressive pulmonary and Cardiology support. She was eventually stabilized and transferred to [facility] for physical t herapy, occupational therapy and speech therapy. The patient continues to be in a good mood. She is having speech therapy this morning and is doing v arvin well. LABORATORY DATA: No labs were done today. VITAL SIGNS: Blood pressure 143/83, pulse 69, respirations 17-18, O2 saturation 97-98% on 1 liter na dorene cannula. T-max 97.6. PHYSICAL EXAMINATION: GENERAL: This is a well-developed, well-nourished, very pleasant, thin, 102 pound white female in no apparent distress at this time. HEENT: Reveals normocephalic, nontraumatic cranium. Pupils are equally round and reactive. Extraoc ular movements intact. Nose and throat are slightly moist, but clear. NECK: Supple, without masses, nodes or bruits. LUNGS: Chest is clear to auscultation. No rales, rhonchi, wheezes or cough is heard. CARDIOVASCULAR: Heart reveals an irregularly irregular rate and rhythm. No murmurs, gallops or rubs are noted. ABDOMEN: Soft, nontender, without organomegaly. Normal bowel sounds are noted. No rebound or guard ing is noted. : Deferred. EXTREMITIES: Reveal no clubbing, cyanosis or edema. NEUROLOGIC: The patient has extreme weakness. IMPRESSION: 1. Recent history of acute exacerbation of chronic obstructive pulmonary disease. 2. Recent history of systolic and diastolic congestive heart failure, but the Lasix is presently on hold. 3. History of acute hypoxemic respiratory failure. 4. History of aspiration pneumonia. The patient's Augmentin has been stopped. 5. Acute metabolic encephalopathy which is improved. 6. Paroxysmal atrial fibrillation. The patient is on Eliquis 2.5 mg. 7. Esophageal stricture which was dilated, is doing very well. Patient is now eating. 8. Hypertension, stable. 9. T12 compression fracture with recent vertebroplasty, continued physical therapy and occupational therapy. 10. Dysphagia. 11. Non-Hodgkin's lymphoma. 12. Diastolic congestive heart failure. 13. Gastroesophageal reflux disease. 14. Peptic ulcer disease. 15. Macular degeneration. 16. Generalized weakness. PLAN: 1. The patient's Augmentin has been stopped. 2. The patient's Lasix is on hold because of her slight bump in her creatinine and BUN. 3. The patient's potassium has been stopped. 4. The patient's iron supplement has been stopped because of her gastritis. The patient has also be en stopped for her Naprosyn. The patient's labs day before yesterday were very good, we will repeat those probably on Wednesday. 5. Continue physical therapy and occupational therapy. 6. Continue speech therapy. 7. Awaiting records from [facility].
[2017-04-08] MEDS: Lidocaine Patch Removal 1 EACH TOP SCH (21:18)
[2017-04-09] MEDS: Acetaminophen 325 MG TAB PO SCH ×2 (00:39→06:35)
[2017-04-09 06:09] LABS: Hemoglobin 16.1 g/dL (12.0-16.0); Platelet Count 342 thou/uL (130-400)
[2017-04-09] MEDS: Mometasone/Formoterol 60 PUFF AER INH SCH ×2 (06:33→18:20)
[2017-04-09] MEDS: FLUoxetine HCl 20 MG CAP PO SCH (08:57)
[2017-04-09] MEDS: Nystatin 500,000 UNITS/5 ML UDCUP PO SCH ×6 (08:57→21:17)
[2017-04-09] MEDS: Lidocaine 5% Patch TD SCH (08:57)
[2017-04-09] MEDS: Aspirin 81 mg Enteric Coated Tablet PO SCH (08:58)
[2017-04-09] MEDS: predniSONE 20 MG TAB PO SCH (08:58)
[2017-04-09] MEDS: Famotidine 20 MG TAB PO SCH ×2 (08:58→21:14)
[2017-04-09] MEDS: Apixaban 5 MG TAB PO SCH ×2 (08:58→21:14)
[2017-04-09] MEDS: valACYclovir 500 MG TAB PO SCH (08:58)
[2017-04-09] MEDS: Naproxen 500 MG TAB PO SCH ×2 (08:58→17:46)
[2017-04-09] MEDS: Carvedilol 6.25 MG TAB PO SCH ×2 (09:04→17:45)
--- NOTE | 2017-04-09 10:02 | PRG ---
DATE OF SERVICE: 04/09/2017 SUBJECTIVE: Ms. Burnett is doing well. Denies any complaints, resting comfortably, no family at bed side. Discussed with nursing and no concerns. She normally uses 3 liters of oxygen at home and here she is on 2.5 liters and doing well. OBJECTIVE: VITAL SIGNS: She is afebrile, heart rate 72, respirations 20, oxygen saturation 98% on 2.5 liters, b lood pressure is 141/70. CARDIOVASCULAR: S1, S2 plus. RESPIRATORY: Does show some crackles at the bases. ABDOMEN: Soft, nontender, bowel sounds heard in all quadrants. EXTREMITIES: Without cyanosis, clubbing. LABORATORY VALUES: Today, her H&H is 16.1 and 52.9. Her white count yesterday was 15.8 two days ago . IMPRESSION: 1. Resolving pneumonia. 2. Improving congestive heart failure. 3. Chronic obstructive pulmonary disease. 4. Chronic hypoxemic respiratory failure. 5. Deconditioning with slow improvement. 6. Paroxysmal atrial fibrillation. 7. Leukocytosis. PLAN: 1. Recheck CBC in the morning. 2. Physical therapy. 3. Oxygen. 4. Breathing treatments. 5. Nutritional support. 6. Monitor heart rate and cardiovascular status. 7. No family at bedside. 8. Physical therapy.
[2017-04-09] MEDS: ACETAMINOPHEN 500 MG PO SCH ×2 (12:01→18:20)
[2017-04-09] MEDS: Lidocaine Patch Removal 1 EACH TOP SCH (21:17)
[2017-04-10] MEDS: ACETAMINOPHEN 500 MG PO SCH ×4 (02:25→18:39)
[2017-04-10 06:15] LABS: Anion Gap 16 mmol/L (10-20); BUN (Urea Nitrogen) 37 mg/dL (9.8-20.1); Calc. Creatinine Clearance 29 mL/min (70-130); Carbon Dioxide 22 mmol/L (23-31); Chloride 105 mmol/L (98-107); Estimated GFR-MDRD 61; Glucose 90 mg/dL (83-110); Sodium 138 mmol/L (136-145)
[2017-04-10] MEDS: Mometasone/Formoterol 60 PUFF AER INH SCH ×2 (06:15→18:40)
[2017-04-10 06:16] LABS: #Basophils 0.1 thou/uL (0.0-0.2); #Eosinphils 0.1 thou/uL (0.0-0.7); #Lymphocytes 1.1 thou/uL (1.20-3.40); #Monocytes 1.5 thou/uL (0.11-0.59); #Neutrophils 13.3 thou/uL (1.40-6.50); %Basophils 0.8 % (0.0-1.0); %Eosinophils 0.7 % (0.0-10.0); %Lymphocytes 6.6 % (21.0-51.0); %Monocytes 9.2 % (0.0-10.0); %Neutrophils 82.7 % (42.0-75.0); Hemoglobin 15.5 g/dL (12.0-16.0); Mean Corpuscular HGB CONC 29.8 g/dL (32.0-36.0); Mean Corpuscular Hemoglobin 29.9 pg (27.0-31.0); Mean Platelet Volume 8.4 fL (7.4-10.4); Platelet Count 300 thou/uL (130-400); RBC Distribution Width 17.7 % (11.5-14.5); Red Blood Cell (RBC) Count 5.18 mill/uL (4.20-5.40); White Blood Cell (WBC) Count 16.1 thou/uL (4.8-10.8)
[2017-04-10 06:42] LABS: Potassium 4.5 mmol/L (3.5-5.1)
[2017-04-10] MEDS: Apixaban 5 MG TAB PO SCH ×2 (08:48→20:59)
[2017-04-10] MEDS: FLUoxetine HCl 20 MG CAP PO SCH (08:48)
[2017-04-10] MEDS: Lidocaine 5% Patch TD SCH (08:48)
[2017-04-10] MEDS: Famotidine 20 MG TAB PO SCH ×2 (08:49→20:59)
[2017-04-10] MEDS: Carvedilol 6.25 MG TAB PO SCH ×2 (08:49→17:24)
[2017-04-10] MEDS: predniSONE 10 MG TAB PO SCH (08:49)
[2017-04-10] MEDS: Aspirin 81 mg Enteric Coated Tablet PO SCH (08:49)
[2017-04-10] MEDS: valACYclovir 500 MG TAB PO SCH (08:50)
[2017-04-10] MEDS: Nystatin 500,000 UNITS/5 ML UDCUP PO SCH ×4 (08:50→20:59)
--- NOTE | 2017-04-10 16:26 | PRG ---
DATE OF SERVICE: 04/10/2017 SUBJECTIVE: Ms. Burnett is lying in bed and denies any complaints. Denies any chest pain or shortne ss of breath. Denies any fever or chills. Denies any cough with expectoration or any dysuria. No f amily at the bedside. OBJECTIVE: VITAL SIGNS: She is afebrile, heart rate 70, respirations 18, oxygen saturation 98% on room air, blo od pressure is 141/70. CARDIOVASCULAR SYSTEM: S1, S2 plus. RESPIRATORY SYSTEM: Normal vesicular breath sounds. ABDOMEN: Soft, nontender, bowel sounds heard in all quadrants. EXTREMITIES: Without cyanosis or clubbing. CENTRAL NERVOUS SYSTEM: Improving deconditioning. LABORATORY VALUES: Her white count is 16.1, hemoglobin and hematocrit is 15.5 and 52, platelet count is 300. Sodium 138, potassium 4.5, BUN and creatinine is 37 and 0.87. BNP is 190. IMPRESSION: 1. Leukocytosis, likely due to her steroids. 2. Combined systolic and diastolic congestive heart failure, stable. 3. Resolving pneumonia. 4. Chronic obstructive pulmonary disease without exacerbation. 5. Chronic hypoxemic respiratory failure. 6. Paroxysmal atrial fibrillation. 7. Deconditioning. PLAN: 1. Continue to monitor leukocytosis and watch for any signs or symptoms of infection. 2. Continue current medications. 3. Oxygen. 4. DVT and stress ulcer prophylaxis. 5. Decubitus precautions. 6. Breathing treatment. 7. Her prednisone should end tomorrow. We will order CBC for day after tomorrow. No family at beds radha. Discussed with the patient in detail, as well as with nursing.
[2017-04-10] MEDS: Lidocaine Patch Removal 1 EACH TOP SCH (21:00)
[2017-04-11] MEDS: ACETAMINOPHEN 500 MG PO SCH ×4 (00:13→19:14)
[2017-04-11 05:58] LABS: Hemoglobin 15.7 g/dL (12.0-16.0); Platelet Count 292 thou/uL (130-400)
[2017-04-11] MEDS: Mometasone/Formoterol 60 PUFF AER INH SCH ×2 (06:15→17:32)
[2017-04-11] MEDS: Nystatin 500,000 UNITS/5 ML UDCUP PO SCH ×4 (08:51→21:39)
[2017-04-11] MEDS: FLUoxetine HCl 20 MG CAP PO SCH (08:51)
[2017-04-11] MEDS: Lidocaine 5% Patch TD SCH (08:51)
[2017-04-11] MEDS: Apixaban 5 MG TAB PO SCH ×2 (08:52→21:39)
[2017-04-11] MEDS: Carvedilol 6.25 MG TAB PO SCH ×2 (08:52→17:31)
[2017-04-11] MEDS: predniSONE 10 MG TAB PO SCH (08:52)
[2017-04-11] MEDS: Famotidine 20 MG TAB PO SCH ×2 (08:52→21:39)
[2017-04-11] MEDS: valACYclovir 500 MG TAB PO SCH (08:53)
[2017-04-11] MEDS: Aspirin 81 mg Enteric Coated Tablet PO SCH (08:53)
--- NOTE | 2017-04-11 11:31 | PRG ---
DATE OF SERVICE: 04/11/2017 SUBJECTIVE: Ms. Burnett is doing the same. Denies any complaints. Her daughter is in the room. OBJECTIVE: VITAL SIGNS: She is afebrile, heart rate is 73, respirations 18, oxygen saturation 98% on 2.5 liters , blood pressure 141/70. CARDIOVASCULAR: S1, S2 plus. RESPIRATORY: Normal vesicular breath sounds. ABDOMEN: Soft, nontender, bowel sounds heard in all quadrants. EXTREMITIES: Without cyanosis or clubbing. CENTRAL NERVOUS SYSTEM: Generalized weakness, H&H of 15.7 and 52.7. IMPRESSION: 1. Leukocytosis, likely related to her prednisone, no signs or symptoms of infection. 2. Combined systolic and diastolic congestive heart failure, stable. 3. Resolving pneumonia. 4. Chronic obstructive pulmonary disease, currently not with exacerbation. 5. Chronic hypoxemic respiratory failure. 6. Paroxysmal atrial fibrillation. 7. Deconditioning. PLAN: 1. Continue current medications. 2. Nutritional support. 3. DVT and stress ulcer prophylaxis. 4. Decubitus precautions. 5. Routine laboratory values. 6. Dr. Didi Medina back tonight.
[2017-04-11] MEDS: Lidocaine Patch Removal 1 EACH TOP SCH (21:40)
[2017-04-12] MEDS: ACETAMINOPHEN 500 MG PO SCH ×4 (03:17→17:44)
[2017-04-12] MEDS: Mometasone/Formoterol 60 PUFF AER INH SCH ×2 (06:22→17:44)
[2017-04-12] MEDS: FLUoxetine HCl 20 MG CAP PO SCH (08:48)
[2017-04-12] MEDS: Lidocaine 5% Patch TD SCH (08:48)
[2017-04-12] MEDS: Famotidine 20 MG TAB PO SCH ×2 (08:49→20:40)
[2017-04-12] MEDS: Apixaban 5 MG TAB PO SCH ×2 (08:49→20:40)
[2017-04-12] MEDS: predniSONE 10 MG TAB PO SCH (08:49)
[2017-04-12] MEDS: Carvedilol 6.25 MG TAB PO SCH ×2 (08:49→17:41)
[2017-04-12] MEDS: Aspirin 81 mg Enteric Coated Tablet PO SCH (08:50)
[2017-04-12] MEDS: valACYclovir 500 MG TAB PO SCH (08:51)
[2017-04-12] MEDS: Nystatin 500,000 UNITS/5 ML UDCUP PO SCH ×4 (08:58→20:41)
--- NOTE | 2017-04-12 17:46 | PRG ---
DATE OF SERVICE: 04/12/2017 HISTORY OF PRESENT ILLNESS: The patient is a very pleasant 87-year-old white female transferred from [facility] with COPD, acute exacerbation of her diastolic congestive heart failure, pneumon ia, and generalized weakness. She was treated aggressively by Pulmonary and Cardiology. She sees Dr Tom Monte and Dr. Corrales. She eventually was stabilized and transferred to [facility] for physical therapy, occupational therapy, and speech therapy. The patient had some discrepancies or problems with the nurse Lidia. She is at times rather demandin g, but unfortunately, she and Lidia will not get along. We will talk with the nurses about that. Ms. Moctezuma is actually doing very well. Her last labs reveal a white count of 16,000 with a hemoglob in 15.7, hematocrit 52.7 and 292,000 platelets. Sodium 138, potassium 4.5, chloride 105, carbon dioxide 22 with a BUN of 37, creatinine 0.77. She st arted out when she arrived here 102 pounds, she is now 92.4 pounds. I did discuss her therapy with t herapy group and that she is actually doing very well. She walked this morning 54 feet and rested an d walked 178 feet. This afternoon, she walked 230 feet. She is actually doing very well and her dis charge date is planned for most likely on Wednesday. I did talk with her daughter, Mariella and gave he r all the above information. They hope to have [facility] come to see her. She will continue with home health physical therapy to walk her hopefully 3 times a week with contact guard. We hope to have her caregivers be trained by physical therapy to help get her up out of bed and on he r way. We will repeat a CBC, BNP and a BMP tomorrow, so that when she sees Dr. Corrales, he can review her lab s. PHYSICAL EXAMINATION: GENERAL: This is a well-developed, well-nourished, very thin 92-pound white female in no apparent di stress at this time. HEENT: Reveals normocephalic, nontraumatic cranium. Pupils equal, round, and reactive. Extraocular movements intact. Nose and throat are slightly dry, but clear. NECK: Supple, without masses, nodes or bruits. LUNGS: Chest is clear to auscultation, no rales or rhonchi, no wheezes or cough is heard. The emmie nt states she is short of breath, but she walked 230 feet, which is much more than she typically walk s. HEART: Reveals an irregularly irregular rate and rhythm, no murmurs, gallops or rubs are noted. ABDOMEN: Soft, nontender, without organomegaly, normal bowel sounds are noted. No rebound or guardi ng is noted. : Deferred. EXTREMITIES: Reveal no clubbing, cyanosis or edema. NEUROLOGIC: The patient is neurologically intact, but has weakness. She is actually much improved. IMPRESSION: 1. Recent history of acute exacerbation of chronic obstructive pulmonary disease, much improved pres ently on Dulera, Xopenex, and oxygen. 2. Recent history of systolic and diastolic congestive heart failure. Lasix is presently on hold, b ut we will initiate Wednesday, Wednesday, Wednesday at 20 mg. 3. Acute hypoxemic respiratory failure which is stable. 4. History of aspiration pneumonia. The Augmentin has finished. 5. Acute metabolic encephalopathy which is much improved, paroxysmal atrial fibrillation. The emmie nt is presently on Eliquis 2.5 b.i.d. 6. Esophageal stricture which was dilated. The patient is doing very well, is eating fairly well an d is on Protonix 40 mg daily. 7. Hypertension, stable. 8. T12 compression fracture with recent vertebroplasty. Continue PT and OT. 9. Dysphagia, stable. 10. Non-Hodgkin's lymphoma followed at [facility]. 11. Diastolic congestive heart failure. Her last BNP was 190.6 last I believe. 12. Gastroesophageal reflux disease. 13. Peptic ulcer disease. 14. Macular degeneration. 15. Generalized weakness. PLAN: 1. We will restart the patient's Lasix 20 mg on Wednesday, Wednesday and Wednesday. 2. Continue physical therapy and occupational therapy. 3. Continue speech therapy. 4. See Dr. Corrales tomorrow at 01:15. 5. We are anticipating discharge on Wednesday or Wednesday. 6. Patient's request [facility]. 7. We will request Home Health for physical therapy 2 or 3 times a week to continue strengthening he r. 8. Follow up with Dr. Monte as an outpatient. 9. Her new medications from this last hospitalization was, A. Eliquis 2.5 b.i.d. B. Carvedilol 12.5 b.i.d. C. Protonix 40 mg every day. Juanpablo Hammonds one puff b.i.d. E. She is also on Xopenex 1.25 mg nebs q.6 hours. p.r.n.
[2017-04-12] MEDS: Lidocaine Patch Removal 1 EACH TOP SCH (22:00)
[2017-04-13] MEDS: ACETAMINOPHEN 500 MG PO SCH ×4 (01:20→17:15)
[2017-04-13 05:47] LABS: #Basophils 0.2 thou/uL (0.0-0.2); #Eosinphils 0.2 thou/uL (0.0-0.7); #Monocytes 0.8 thou/uL (0.11-0.59); #Neutrophils 10.2 thou/uL (1.40-6.50); %Basophils 1.2 % (0.0-1.0); %Eosinophils 1.3 % (0.0-10.0); %Lymphocytes 7.9 % (21.0-51.0); %Monocytes 6.3 % (0.0-10.0); %Neutrophils 83.3 % (42.0-75.0); Hemoglobin 16.7 g/dL (12.0-16.0); Mean Corpuscular HGB CONC 30.5 g/dL (32.0-36.0); Mean Corpuscular Hemoglobin 30.2 pg (27.0-31.0); Mean Platelet Volume 9.2 fL (7.4-10.4); Platelet Count 275 thou/uL (130-400); RBC Distribution Width 17.5 % (11.5-14.5); Red Blood Cell (RBC) Count 5.52 mill/uL (4.20-5.40); White Blood Cell (WBC) Count 12.3 thou/uL (4.8-10.8)
[2017-04-13 05:49] LABS: Anion Gap 16 mmol/L (10-20); BUN (Urea Nitrogen) 21 mg/dL (9.8-20.1); Calc. Creatinine Clearance 34 mL/min (70-130); Calcium 9.2 mg/dL (7.8-10.44); Carbon Dioxide 25 mmol/L (23-31); Chloride 103 mmol/L (98-107); Estimated GFR-MDRD 73; Glucose 88 mg/dL (83-110); Potassium 4.9 mmol/L (3.5-5.1); Sodium 139 mmol/L (136-145)
[2017-04-13] MEDS: Mometasone/Formoterol 60 PUFF AER INH SCH ×2 (06:22→17:15)
[2017-04-13] MEDS: Carvedilol 6.25 MG TAB PO SCH ×2 (08:23→17:14)
[2017-04-13] MEDS: Aspirin 81 mg Enteric Coated Tablet PO SCH (08:24)
[2017-04-13] MEDS: Apixaban 5 MG TAB PO SCH ×2 (08:24→21:38)
[2017-04-13] MEDS: FLUoxetine HCl 20 MG CAP PO SCH (08:25)
[2017-04-13] MEDS: Lidocaine 5% Patch TD SCH (08:25)
[2017-04-13] MEDS: Famotidine 20 MG TAB PO SCH ×2 (08:25→21:38)
[2017-04-13] MEDS: Nystatin 500,000 UNITS/5 ML UDCUP PO SCH ×4 (08:26→21:38)
[2017-04-13] MEDS: valACYclovir 500 MG TAB PO SCH (08:26)
--- NOTE | 2017-04-13 18:56 | PRG ---
DATE OF SERVICE: 04/13/2017 HISTORY OF PRESENT ILLNESS: Ms. Burnett is a very pleasant 87-year-old white female that was seen at [facility] with COPD, acute exacerbation of diastolic congestive heart failure, pneumonia, and generalized weakness. She was treated with aggressive pulmonary and Cardiology and was seen by Minda Monte and Dr. Corrales. She was supposed to see Dr. Corrales today, who agreed with Lasix 20 mg every Wednesday, Wednesday, and . She eventually was transferred to [facility] for physical therapy, occupationa l therapy, and speech therapy. The patient seems to be doing very well today and has had no complaints. VITAL SIGNS: This morning reveal blood pressure 126/75, pulse 70-73, respirations 18-20, O2 sat 97%- 100% on 2.5 liters. T-max 97.7. LABORATORY: Today reveals white count of 12,300 with a hemoglobin of 16.7, hematocrit 54.6 and plate let count 275,000. The patient's sodium is 139, potassium 4.9, chloride 103, carbon dioxide 25 with a BUN of 21 and crea tinine 0.75. Her GFR is estimated at 73. Glucose this morning was 88. Her BNP was 214, she has a history of being in 900s and all the way up to 3000. OBJECTIVE: GENERAL: This is a well-developed, well-nourished, very thin, white female, in no apparent distress at this time. HEENT: Reveals normocephalic, nontraumatic cranium. Pupils equal, round, and reactive. Extraocular movements intact. Nose and throat are slightly dry, but clear. NECK: Supple without mass, nodes or bruits. LUNGS: Chest clear to auscultation. No rales, no rhonchi are heard. No wheezes or cough is heard. The patient has no crackles in her bases. HEART: Reveals an irregular rate and rhythm without murmurs, gallops or rubs. ABDOMEN: Soft and nontender without organomegaly, normal bowel sounds noted. No rebound or guarding is noted. : Deferred. EXTREMITIES: Reveal no clubbing, cyanosis or edema. NEUROLOGIC: The patient is intact, but has weakness. IMPRESSION: 1. Recent acute exacerbation of chronic obstructive pulmonary disease, much improved on Dulera, Xopenex, and oxygen. 2. Recent history of systolic and diastolic congestive heart failure. Lasix presently is 20 mg , Wednesday and Wednesday. 3. Acute hypoxemic respiratory failure, which is stable. 4. History of aspiration pneumonia, Augmentin has been finished. 5. Acute metabolic encephalopathy, much improved. 6. Paroxysmal atrial fibrillation, the patient presently on Eliquis 2.5 b.i.d. 7. Esophageal stricture which has been dilated. The patient is doing well on Protonix 40 mg daily. 8. Hypertension, stable. 9. T12 compression fracture with recent vertebroplasty. Continue PT and OT. 10. Dysphagia, stable. 11. Non-Hodgkin's lymphoma, followed at [facility]. 12. Diastolic congestive heart failure, last BNP was 214.8. 13. Gastroesophageal reflux. 14. Peptic ulcer disease. 15. Macular degeneration. 16. Generalized weakness. PLAN: 1. Continue Lasix at 20 mg Wednesday, Wednesday and Wednesday. 2. Physical therapy and occupational therapy. 3. Continue speech therapy. 4. The patient saw Dr. Corrales today. 5. Anticipate discharge on Wednesday or Wednesday.
[2017-04-13] MEDS: Lidocaine Patch Removal 1 EACH TOP SCH (21:38)
[2017-04-14] MEDS: ACETAMINOPHEN 500 MG PO SCH ×4 (00:48→13:44)
[2017-04-14] MEDS: Mometasone/Formoterol 60 PUFF AER INH SCH ×2 (06:11→17:57)
[2017-04-14] MEDS: FLUoxetine HCl 20 MG CAP PO SCH (08:41)
[2017-04-14] MEDS: Aspirin 81 mg Enteric Coated Tablet PO SCH (08:41)
[2017-04-14] MEDS: valACYclovir 500 MG TAB PO SCH (08:41)
[2017-04-14] MEDS: Apixaban 5 MG TAB PO SCH ×2 (08:42→21:42)
[2017-04-14] MEDS: Carvedilol 6.25 MG TAB PO SCH ×2 (08:42→17:56)
[2017-04-14] MEDS: Famotidine 20 MG TAB PO SCH ×2 (08:42→21:42)
[2017-04-14] MEDS: Lidocaine 5% Patch TD SCH (08:43)
[2017-04-14] MEDS: Nystatin 500,000 UNITS/5 ML UDCUP PO SCH ×4 (08:43→21:42)
[2017-04-14] MEDS: Furosemide 20 MG TAB PO SCH (08:46)
--- NOTE | 2017-04-14 13:51 | PRG ---
DATE OF SERVICE: 04/14/2017 DATE OF ADMISSION: 03/31/2017 SUBJECTIVE: Ms. Burnett is a very pleasant 87-year-old white female who presented to [facility] with COPD acute exacerbation of diastolic congestive heart failure, pneumonia, generalized weakn ess. She was treated aggressively and stabilized and then transferred to [facility] for physical therapy, occupational therapy and speech therapy. The patient has actually been doing well and seems to be improving all areas, although she is particu lar about when she is able to have her therapy. The patient did see Dr. Corrales yesterday. He was very pleased with her numbers, especially her BNP w hich is going down to 214. Creatinine is also 0.75. He did recommend that we continue her Lasix on Wednesday, Wednesday and Wednesday. PHYSICAL EXAMINATION: VITAL SIGNS: This morning reveal blood pressure was 124/68, pulse 63-70, respirations 18-20, O2 sat 96%-97% on 2-2.5 liters of nasal cannula of oxygen. GENERAL: This is a well-developed, well-nourished, very thin white female in no apparent distress at this time. HEENT: Reveals normocephalic, nontraumatic cranium. Pupils are equally round and reactive. Extraoc ular movements are intact. Nose and throat are slightly dry. NECK: Supple, without mass, nodes or bruits. CHEST: Clear to auscultation. No rales, rhonchi or wheezes are heard. HEART: Reveals irregular rate and rhythm without murmurs, gallops or rubs. ABDOMEN: Soft, nontender, without organomegaly, scaphoid. Normal bowel sounds are noted in all 4 qu adrants. No rebound or guarding is noted. GENITOURINARY: Deferred. EXTREMITIES: Reveal no clubbing, cyanosis, and no edema. NEUROLOGIC: The patient is alert and oriented x3. ASSESSMENT: 1. Acute hypoxemic respiratory failure, improved. 2. Recent acute exacerbation of chronic obstructive pulmonary disease, much improved with Dulera, Xo penex and oxygen. 3. Recent history of systolic and diastolic congestive heart failure, much improved with Lasix 20 mg , Wednesday, Wednesday and Wednesday. 4. History of aspiration pneumonia, Augmentin has been finished. 5. Acute metabolic encephalopathy, improved. 6. Paroxysmal atrial fibrillation, presently on Eliquis 2.5 b.i.d. 7. Esophageal stricture which has been dilated. The patient continues on Protonix 40 mg daily. 8. Hypertension, stable. 9. T12 compression fracture with recent vertebroplasty. 10. Dysphagia, stable. 11. Non-Hodgkin's lymphoma followed by [facility]. 12. Diastolic congestive heart failure. Last BMP was 214.8. 13. Gastroesophageal reflux disease. 14. Peptic ulcer disease. 15. Macular degeneration. 16. Lasix. PLAN: 1. Patient will be discharged Wednesday. 2. Continue Lasix 20 mg on Wednesday, Wednesday and Wednesday. 3. Physical therapy and occupational therapy. 4. Continue speech therapy. 5. Patient saw Dr. Corrales yesterday and he was approved. 6. Anticipate discharge Wednesday.
[2017-04-14] MEDS: Lidocaine Patch Removal 1 EACH TOP SCH (21:47)
[2017-04-15] MEDS: ACETAMINOPHEN 500 MG PO SCH ×4 (00:46→18:01)
[2017-04-15] MEDS: Mometasone/Formoterol 60 PUFF AER INH SCH ×2 (06:22→18:02)
[2017-04-15] MEDS: Carvedilol 6.25 MG TAB PO SCH ×2 (08:52→18:01)
[2017-04-15] MEDS: FLUoxetine HCl 20 MG CAP PO SCH (08:53)
[2017-04-15] MEDS: valACYclovir 500 MG TAB PO SCH (08:53)
[2017-04-15] MEDS: Apixaban 5 MG TAB PO SCH ×2 (08:53→21:24)
[2017-04-15] MEDS: Famotidine 20 MG TAB PO SCH ×2 (08:54→21:24)
[2017-04-15] MEDS: Lidocaine 5% Patch TD SCH (08:54)
[2017-04-15] MEDS: Aspirin 81 mg Enteric Coated Tablet PO SCH (08:54)
[2017-04-15] MEDS: Nystatin 500,000 UNITS/5 ML UDCUP PO SCH ×5 (08:54→21:24)
--- NOTE | 2017-04-15 14:14 | PRG ---
DATE OF ADMISSION: 03/31/2017 DATE OF SERVICE: 04/15/2017 HISTORY OF PRESENT ILLNESS: Ms. Burnett is a very pleasant 87-year-old white female who presented to [facility] with COPD exacerbation and diastolic congestive heart failure. She also had pneu monia and generalized weakness. She was treated aggressively, stabilized and then transferred to [facility] for PT, OT, and speech therapy. The patient has actually done very well, but she continues unfortunately to be tired at different hannah es and refusing either speech therapy or occupational therapy. She did refuse her speech therapy thi s morning because she wanted it in the afternoon instead of this morning. PHYSICAL EXAMINATION: VITAL SIGNS: Today reveal blood pressure 133/74, pulse 73-59, respirations 18-20, O2 sat 98% on 2-1/ 2 liters. GENERAL: This is a well-developed, well-nourished, very pleasant, very extremely skinny white female in no apparent distress at this time. HEENT: Reveals normocephalic, nontraumatic cranium. Pupils equal, round, and reactive. Extraocular movements intact. Nose and throat are slightly dry. NECK: Supple, without mass, nodes or bruits. CHEST: Clear to auscultation. No rales, rhonchi or wheezes are heard. CARDIOVASCULAR: Reveals a regular rate and rhythm without murmurs, gallops or rubs. ABDOMEN: Soft, nontender, without organomegaly, normal bowel sounds are noted. No rebound or guardi ng is noted. GENITOURINARY: Deferred. EXTREMITIES: Reveal no clubbing, cyanosis or edema. NEUROLOGIC: The patient is oriented x3. IMPRESSION: 1. Acute hypoxemic respiratory failure, improved. 2. Recent acute exacerbation of chronic obstructive pulmonary disease, much improved with the Dulera , Xopenex and oxygen. 3. Recent history of systolic and diastolic congestive heart failure, improved with Lasix 20 mg on M , Wednesday and Wednesday. 4. History of aspiration pneumonia. Augmentin has been finished. 5. Acute metabolic encephalopathy, improved. 6. Paroxysmal atrial fibrillation, presently on Eliquis 2.5 b.i.d. 7. Esophageal stricture which has been dilated. The patient continues on Protonix 40 mg daily. 8. Hypertension, stable. 9. Dysphagia, stable. 10. Non-Hodgkin's lymphoma, followed by [facility]. 11. Diastolic congestive heart failure, last BNP was 214.8. 12. Gastroesophageal reflux. 13. Peptic ulcer disease. 14. Macular degeneration. 15. Generalized weakness. PLAN: 1. The patient is actually doing very well. Her game plan is to be discharged Wednesday. 2. Continue Lasix 20 mg on Wednesday, Wednesday and Wednesday. 3. Continue outpatient physical therapy and occupational therapy. 4. Continue speech therapy. 5. The patient was seen by Dr. Corrales yesterday and will not have any change in medicine. 6. Anticipate discharge on Wednesday.
[2017-04-15] MEDS: Melatonin 3 MG TAB PO PRN (21:24)
[2017-04-15] MEDS: Diphenoxylate HCl/Atropine Tablet PO PRN (21:24)
[2017-04-15] MEDS: Lidocaine Patch Removal 1 EACH TOP SCH (21:25)
[2017-04-16] MEDS: ACETAMINOPHEN 500 MG PO SCH ×4 (01:01→17:33)
[2017-04-16 05:21] LABS: Hemoglobin 15.2 g/dL (12.0-16.0); Platelet Count 269 thou/uL (130-400)
[2017-04-16] MEDS: Mometasone/Formoterol 60 PUFF AER INH SCH ×2 (06:18→17:33)
[2017-04-16] MEDS: Lidocaine 5% Patch TD SCH (08:48)
[2017-04-16] MEDS: Apixaban 5 MG TAB PO SCH ×2 (08:48→20:56)
[2017-04-16] MEDS: Nystatin 500,000 UNITS/5 ML UDCUP PO SCH ×4 (08:48→20:58)
[2017-04-16] MEDS: FLUoxetine HCl 20 MG CAP PO SCH (08:49)
[2017-04-16] MEDS: Carvedilol 6.25 MG TAB PO SCH ×2 (08:50→17:33)
[2017-04-16] MEDS: Aspirin 81 mg Enteric Coated Tablet PO SCH (08:50)
[2017-04-16] MEDS: Famotidine 20 MG TAB PO SCH ×2 (08:51→20:56)
[2017-04-16] MEDS: valACYclovir 500 MG TAB PO SCH (08:51)
[2017-04-16] MEDS: Furosemide 20 MG TAB PO SCH (08:53)
--- NOTE | 2017-04-16 13:37 | PRG ---
DATE OF SERVICE: 04/16/2017 HISTORY OF PRESENT ILLNESS: Ms. Burnett is a very pleasant 87-year-old white female. She initially presented with COPD exacerbation of diastolic congestive heart failure to the ER at [facility]. She was also found to have pneumonia and generalized weakness. She was treated aggressively wit h IV antibiotics and IV diuretics. She was eventually stabilized and transferred to [facility] for physical therapy, occupational therapy, and speech therapy. The patient has actually done very well. She is receiving therapy today in the form of occupational, physical, and speech therapy. She is ready for discharge tomorrow morning. VITAL SIGNS: Today reveal blood pressure is 151/81, pulse 69-75, respirations 16-20, O2 sat 98-99% o n 2.5 liters. T-max is 97.3. LABORATORY: Labs done this morning reveal hemoglobin 15.2, hematocrit 50.1 with a platelet count of 269. Creatinine is 0.73 with estimated GFR of 73. PHYSICAL EXAMINATION: GENERAL: This is a well-developed, well-nourished, very thin white female in no apparent distress at this time. HEENT: Reveals normocephalic, nontraumatic cranium. Pupils equal, round, and reactive. Extraocular movements intact. Nose and throat are slightly dry. NECK: Supple, without mass, nodes or bruits. LUNGS: Chest is clear to auscultation. No rales, no rhonchi, no wheezes are heard. CARDIOVASCULAR: Reveals a regular rate and rhythm without murmurs, gallops or rubs. ABDOMEN: Soft, nontender, without organomegaly. Normal bowel sounds are noted. No rebound or guard ing is noted. GENITOURINARY: Deferred. EXTREMITIES: Reveal no clubbing, cyanosis or edema. NEUROLOGIC: Patient is oriented x3. IMPRESSION: 1. Acute hypoxemic respiratory failure, much improved. 2. Recent acute exacerbation of chronic obstructive pulmonary disease, much improved with Dulera, Xo penex and oxygen. 3. Recent history of systolic and diastolic congestive heart failure, improved on Lasix 20 mg on Wed, Wednesday and Wednesday. 4. History of aspiration pneumonia, but the Augmentin has been finished. 5. Acute metabolic encephalopathy, resolved. 6. Paroxysmal atrial fibrillation, presently on Eliquis 2.5 mg twice daily. 7. Esophageal stricture which has been dilated. The patient is continued on Protonix 40 mg daily. 8. Hypertension. 9. Dysphagia. 10. Non-Hodgkin's lymphoma followed at [facility]. 11. Diastolic congestive heart failure, last BNP was 214.8. 12. Gastroesophageal reflux. 13. Peptic ulcer disease. 14. Macular degeneration. 15. Generalized weakness. PLAN: 1. The patient is planning on being discharged tomorrow morning. 2. We will continue the Lasix 20 mg on Wednesday, Wednesday and Wednesday. 3. Continue outpatient physical therapy and occupational therapy. 4. Continue outpatient speech therapy. 5. The patient was seen by Dr. Corrales and he agrees with her present medications. 6. Discharge tomorrow morning.
[2017-04-16] MEDS: Melatonin 3 MG TAB PO PRN (20:55)
[2017-04-16] MEDS: Diphenoxylate HCl/Atropine Tablet PO PRN (20:55)
[2017-04-16] MEDS: Lidocaine Patch Removal 1 EACH TOP SCH (20:57)
[2017-04-17] MEDS: ACETAMINOPHEN 500 MG PO SCH ×2 (00:57→06:10)
[2017-04-17 06:09] VITALS: BMI 17.8
[2017-04-17] MEDS: Mometasone/Formoterol 60 PUFF AER INH SCH (06:10)
--- NOTE | 2017-04-17 06:14 | DIS ---
DATE OF ADMISSION: 03/31/2017 DATE OF DISCHARGE: 04/17/2017 HOSPITAL COURSE: Ms. Burnett is a very pleasant 87-year-old white female from [facility] that wa s in the unit at [facility] for rehab when she developed significant shortness of breath. She was t ransferred to [facility] for acute exacerbation of her COPD and chronic diastolic congestive heart failure. She had a 2D echo which revealed an ejection fraction of 50%-55%. She was seen by Casandra caraballo and placed on aggressive pulmonary therapy including Solu-Medrol, bronchodilators, and IV an tibiotics. She was very slow to improve, but did improve. She was seen by Cardiology for atrial fib rillation which included in adjusting her Coreg. She converted to sinus rhythm and started on antico agulation. She had been seen by GI and evaluated EGD back on 03/29/2017 for esophageal stricture whi ch was dilated and pyloric stenosis. Her amiodarone was stopped because of lung changes on the chest and CT imaging. She eventually was stabilized and transferred to [facility] for [facility] skilled care, physical therapy and occupational therapy. While at [facility], she has actually done very well, has continued to progress with her physical therapy, occupational therapy, and speech therapy. She has actually reached maximum med ica benefit and is ready for discharge at this time. DISCHARGE MEDICATIONS: Include the following; 1. Aspirin 81 mg daily. 2. Apixaban and also known Eliquis 2.5 mg b.i.d. 3. Carvedilol 12.5 mg b.i.d. which is most likely a different dose that she had in the hospital. 4. Furosemide 20 mg every Wednesday, Wednesday, and Wednesday. 5. Pantoprazole, which is Protonix 40 mg daily. 6. Dicyclomine or Bentyl 10 mg q.i.d. p.r.n. 7. Fluoxetine 60 mg each morning. 8. Valacyclovir 500 mg daily because of her shingles. 9. Dulera 200 mcg 1 puff twice a day, which the patient has at home. 10. DuoNeb p.r.n. 11. Xopenex concentration 1.25 mg nebs q.6 hours p.r.n. 12. Lidoderm patch 5% patch daily p.r.n. 13. Claritin 10 mg daily p.r.n. 14. Milk of Magnesia p.r.n. 15. Melatonin 3 mg at bedtime. 16. Nystatin 1000 units swish and swallow q.i.d. PHYSICAL EXAMINATION: VITAL SIGNS: Reveal blood pressure 117/60, pulse 69, respirations 20, O2 sat 99% on 2-1/2 liters aniceto al cannula. Temperature max is 97.3. Weight yesterday was 102 pounds and 6 ounces. At times, the p atient is incontinent and needs a bedpan or diaper. GENERAL: This is a well-developed, well-nourished, very pleasant, thin white female in no apparent d istress at this time. HEENT: Reveals normocephalic, nontraumatic cranium. Pupils equally round and reactive. Extraocular movements intact. Nose and throat are slightly dry. NECK: Supple without mass, nodes or bruits. CHEST: Clear to auscultation, breath sounds are distant. No rales, no rhonchi, no wheezes or cough is heard. HEART: Reveals a regular rate and rhythm without murmurs, gallops or rubs. ABDOMEN: Scaphoid, soft, nontender, without organomegaly. Normal bowel sounds are noted. No reboun d or guarding is noted. GENITOURINARY: Deferred. EXTREMITIES: Reveal no clubbing, cyanosis or edema. The patient is oriented x3. ASSESSMENT: 1. Acute hypoxemic respiratory failure, resolved. 2. Recent acute exacerbation of chronic obstructive pulmonary disease, much improved with Dulera, Xo penex and oxygen. 3. Recent history of systolic and diastolic congestive heart failure, improved on Lasix 20 mg on Wed, Wednesday and Wednesday. 4. History of aspiration pneumonia. The patient has finished her course of Augmentin. 5. Acute metabolic encephalopathy, resolved. 6. Paroxysmal atrial fibrillation, presently on Eliquis 2.5 mg b.i.d. 7. Esophageal stricture which was dilated and pyloric stenosis. The patient had dilatation on 03/29 and patient is on Protonix 40 mg daily. 8. Hypertension, fairly well controlled. 9. Dysphagia, much improved. 10. Non-Hodgkin's lymphoma followed at [facility]. 11. Diastolic congestive heart failure. Last BMP was 214, which is much improved. 12. Gastroesophageal reflux. 13. Peptic ulcer disease. 14. Macular degeneration. The patient is legally blind. 15. Generalized weakness. PLAN: 1. The patient will be discharged today. We will continue her previous medications like as listed leno garza. The patient will go home with home health, I believe [facility] or [facility]. The pat ient will continue physical therapy, occupational therapy, and speech therapy. 2. The patient will be followed up by Dr. Corrales and Dr. Monte for Pulmonary and Cardiology. 3. The patient will follow up with me in approximately 1 week. 4. The patient has been given prescriptions for apixaban, carvedilol, Protonix, and Lasix.
[2017-04-17 08:13] VITALS: TEMP 96.5
[2017-04-17 08:14] VITALS: BP 163/82
[2017-04-17] MEDS: FLUoxetine HCl 20 MG CAP PO SCH (09:13)
[2017-04-17] MEDS: valACYclovir 500 MG TAB PO SCH (09:13)
[2017-04-17] MEDS: Aspirin 81 mg Enteric Coated Tablet PO SCH (09:14)
[2017-04-17] MEDS: Famotidine 20 MG TAB PO SCH (09:14)
[2017-04-17] MEDS: Carvedilol 6.25 MG TAB PO SCH (09:14)
[2017-04-17] MEDS: Apixaban 5 MG TAB PO SCH (09:15)
[2017-04-17] MEDS: Lidocaine 5% Patch TD SCH (09:15)
[2017-04-17] MEDS: Nystatin 500,000 UNITS/5 ML UDCUP PO SCH (09:19)
== END 2017-04-17 10:00 | disposition home health service (06) | DRG 948 ==
LOC: NAV ACUTE 14:37
PROVIDERS: ADMIT Family Medicine; ATTEND Family Medicine
DX: R53.1 Weakness (principal); J96.11 Chronic respiratory failure with hypoxia; C85.90 Non-Hodgkin lymphoma, unspecified, unspecified site; I11.0 Hypertensive heart disease with heart failure; I50.32 Chronic diastolic (congestive) heart failure; I48.0 Paroxysmal atrial fibrillation; J44.9 Chronic obstructive pulmonary disease, unspecified; H35.30 Unspecified macular degeneration; F32.9 Major depressive disorder, single episode, unspecified; K21.9 Gastro-esophageal reflux disease without esophagitis; K27.9 Peptic ulcer, site unspecified, unspecified as acute or chronic, without hemorrhage or perforation; Z87.891 Personal history of nicotine dependence; Z88.1 Allergy status to other antibiotic agents; Z88.5 Allergy status to narcotic agent; Z88.2 Allergy status to sulfonamides; Z79.82 Long term (current) use of aspirin; Z79.01 Long term (current) use of anticoagulants; Z79.899 Other long term (current) drug therapy
CPT/HCPCS: 36415; 80048; 80053; 81001; 82565; 83880; 85014; 85018; 85025; 85049; 94664; A4353; G8996-GN-CI; G8997-GN-CI; J1642; J7506; J7512; J7620

== ENCOUNTER 2017-07-07 12:20 | Emergency (ER) | payer MEDICARE, OTHER ==
[2017-07-07 13:09] LABS: #Basophils 0.1 thou/uL (0.0-0.2); #Eosinphils 0.2 thou/uL (0.0-0.7); #Monocytes 0.9 thou/uL (0.11-0.59); #Neutrophils 10.2 thou/uL (1.40-6.50); %Basophils 0.9 % (0.0-1.0); %Eosinophils 1.3 % (0.0-10.0); %Lymphocytes 7.9 % (21.0-51.0); %Monocytes 7.3 % (0.0-10.0); %Neutrophils 82.7 % (42.0-75.0); Hemoglobin 16.3 g/dL (12.0-16.0); Mean Corpuscular HGB CONC 30.6 g/dL (32.0-36.0); Mean Corpuscular Hemoglobin 29.1 pg (27.0-31.0); Mean Corpuscular Volume 95.1 fl (81.0-99.0); Mean Platelet Volume 8.3 fL (7.4-10.4); Platelet Count 426 thou/uL (130-400); RBC Distribution Width 14.7 % (11.5-14.5); Red Blood Cell (RBC) Count 5.62 mill/uL (4.20-5.40); White Blood Cell (WBC) Count 12.3 thou/uL (4.8-10.8)
[2017-07-07 13:23] LABS: CKMB 1.2 ng/mL (0-6.6); Troponin I 0.018 ng/mL (< 0.028)
[2017-07-07 13:24] LABS: ALT (SGPT) 11 U/L (8-55); AST (SGOT) 14 U/L (5-34); Albumin 4.1 g/dL (3.4-4.8); Alkaline Phosphatase 106 U/L (40-150); Anion Gap 16 mmol/L (10-20); BUN (Urea Nitrogen) 11 mg/dL (9.8-20.1); CK (CPK) 18 U/L (29-168); Calc. Creatinine Clearance 0 mL/min (70-130); Calcium 9.6 mg/dL (7.8-10.44); Carbon Dioxide 34 mmol/L (23-31); Chloride 99 mmol/L (98-107); Estimated GFR-MDRD 66; Globulin 2.7 g/dL (2.4-3.5); Glucose 105 mg/dL (83-110); Potassium 3.5 mmol/L (3.5-5.1); Protein, Total 6.8 g/dL (6.0-8.3); Sodium 145 mmol/L (136-145)
--- NOTE | 2017-07-07 13:40 | RAD ---
PORTABLE AP CHEST RADIOGRAPH: Date: 07-07-17 History: Shortness of breath. History of CHF. Comparison: 03-25-17 FINDINGS: Cardiac silhouette is enlarged. There is a small right pleural effusion and associated atelectasis. P ulmonary vasculature is stable from the prior exam. There are stable interstitial densities seen whic h are probably related to mild chronic lung changes. Vascular calcifications are seen in the ectatic thoracic aorta. Vertebroplasty changes are seen involving the T12 vertebral body. There is osteopenia . There has been no significant interval change when compared to prior exam. IMPRESSION: Stable chest with small right pleural effusion and atelectasis. POS: [facility]
[2017-07-07] MEDS ORDERED: Furosemide 40 MG/4 ML VIAL ONE (13:45)
== END 2017-07-07 14:30 | disposition short-term general hospital (02) ==
LOC: NAV ERS 12:20
DX: I11.0 Hypertensive heart disease with heart failure (principal); I50.9 Heart failure, unspecified; J90 Pleural effusion, not elsewhere classified; I48.91 Unspecified atrial fibrillation; J44.9 Chronic obstructive pulmonary disease, unspecified; K21.9 Gastro-esophageal reflux disease without esophagitis; F32.9 Major depressive disorder, single episode, unspecified; Z79.899 Other long term (current) drug therapy
CPT/HCPCS: 71045; 80053; 82550; 82553; 83880; 84484; 85025; 93005; 96374; J1940